=== PATIENT | female | born 1990 | race Caucasian/White ===

== ENCOUNTER 2018-10-16 05:23 | Inpatient (IN) ==
--- NOTE | 2018-10-11 10:31 | Anesthesiology Consultation ---
Date of Service October 11, 2018 Assessment & Plan (1) Encounter for pre-operative examination: Chart Review Chart Review: Acceptable Risk for Surgery and Patient seen in Pre Admission Testing Teaching & Discussion Instructed NPO after midnight before surgery, except medications with 15 cc of water. Medication instructions provided according to the PAT guidelines. History Surgery Operation Date: 10/16/18 07:30 Proposed Procedures p Section - Tatum Rendon DO Height/Weight Height: 5 ft 4.5 in Weight: 79.832 kg Allergies Allergy/AdvReac Type Severity Reaction Status Date / Time amoxicillin Allergy Unknown HIVES - Verified 10/09/18 15:57 A CHILD Medications Home Medications Medication Instructions Recorded Confirmed Last Taken + DHA PO BID 10/11/18 Unknown Past Medical History Medical History No known health problems Exercise / Class Metabolic Activity II 4-5 Yardwork/Stairs/Walk up hill Past Surgical History Surgical History History of section Done for failure to progress Past Anesthesia History Had epidural in place for labor, dosed for C/S. [facility]. No issues per patient. History of PONV No Hx of PONV and Hx of Motion Sickness Social History Smoking Status: Never smoker Do You Dip or Chew Tobacco: No Hx Alcohol Use: No Hx Substance Use: No Review of Systems Pt denies any recent chest pain, shortness of breath, palpitations, cough, fever or URI. Physical Exam Vital Signs BP: 99/60 P: 86bpm SPO2: 98% RA T: 98.3 F R: 16 ENMT Mouth: no dental restorations, no chipped teeth and no loose teeth Thyromental Distance: > or= 3.5 Finger Breadths (3.5) Mallampati Class: I Neck normal visual inspection; neck extension not limited Respiratory normal respiratory effort Auscultation: lungs clear to auscultation bilaterally Cardiovascular Rate/Rhythm: regular rate and regular rhythm Heart Sounds: no murmur
--- NOTE | 2018-10-11 15:16 | History & Physical Report ---
Date of Service October 11, 2018 Assessment & Plan (1) 40 weeks gestation of : Plan for repeat section. Reviewed RBA, questions answered. Informed consent obtained in the office. History of Present Illness Chief Complaint: Repeat CS Primary Care Provider: JT PCP 28yo with EDC 10/12/18 is scheduled for repeat section. complicated by h/o in prior due to failure to dilate. Feeling well. Allergies Allergy/AdvReac Type Severity Reaction Status Date / Time amoxicillin Allergy Unknown HIVES - Verified 10/09/18 15:57 A CHILD Home Medications Home Medications Medication Instructions Recorded Confirmed Type + DHA PO BID 10/11/18 History Patient History Medical History No known health problems Surgical History History of section Done for failure to progress Social History Preferred Language: Indian Communication Ability: Effective Penciller Required: No Beliefs That Will Affect Care: None Current Living Situation: Spouse and Family Other Information That Helps Us Care for You: No Feels Safe at Home: Yes Safety Concerns: Feels Safe At This Time Smoking Status: Never smoker Do You Dip or Chew Tobacco: No Second Hand Exposure: No Hx Alcohol Use: No Hx Substance Use: No Review of Systems All systems reviewed & are unremarkable except as noted in HPI & below Physical Exam Constitutional: WD/WN, vitals as above well developed and well nourished; no acute distress Respiratory: normal respiratory effort, lungs clear to auscultation Cardiovascular: RRR, no murmur, no edema Gastrointestinal (Abdomen): Inspection/Auscultation: abdomen normal to inspection Percussion/Palpation: abdomen soft; abdomen nontender Gravid Skin: no rashes, warm and dry Psychiatric: A+Ox3, euthymic affect Lymphatic: no lymphedema
[2018-10-16] MEDS ORDERED: LACTATED RINGER'S 1,000 ML IV SCH ×3 (05:30→11:00)
[2018-10-16 05:57] LABS: Basophils # (auto) 0.01 K/uL (0-0.2); Basophils % (auto) 0.2 %; Eosinophils # (auto) 0.04 K/uL (0-0.5); Eosinophils % (auto) 0.7 %; Hematocrit (blood only) 32.7 % (37-47); Hemoglobin 11.3 g/dL (12.0-16.0); Immature Granulocytes # (auto) 0.02 K/uL (0.00-0.02); Immature Granulocytes % (auto) 0.3 %; Lymphocytes % (auto) 22.5 %; Mean Corpuscular Volume 96.5 fL (80-100); Mean Platelet Volume 9.6 fL (7.4-10.4); Monocytes # (auto) 0.47 K/uL (0.11-0.59); Monocytes % (auto) 8.1 %; Neutrophils # (auto) 3.94 K/uL (1.4-6.5); Neutrophils % (auto) 68.2 %; Platelet Count 174 K/uL (130-400); RDW Coefficient of Variation 12.8 % (11.5-14.5); RDW Standard Deviation 44.5 fL (36.4-46.3); Red Blood Count 3.39 M/uL (4.2-5.4); White Blood Count 5.78 K/uL (4.8-10.8)
[2018-10-16] MEDS ORDERED: LR 15ML/HR IV SCH (06:00)
[2018-10-16] MEDS ORDERED: CEFAZOLIN 2000MG 2,000 MG/15 ML SYR IV SCH (06:00)
[2018-10-16] MEDS ORDERED: CITRIC ACID/SODIUM CITRATE 15 ML UDC PO SCH (06:00)
[2018-10-16 06:12] LABS: Mean Corpuscular Hgb Conc 34.6 g/dL (32-36)
--- NOTE | 2018-10-16 07:01 | History & Physical Bridge Note ---
Date of Service October 16, 2018 History & Physical Bridge Note I have examined the patient, reviewed the History & Physical and in the interval since the performance of the History & Physical I have noted the following changes of clinical significance: no changes noted
[2018-10-16] MEDS ORDERED: LACTATED RINGER'S 500 ML IV PRN (07:11)
[2018-10-16] MEDS ORDERED: ONDANSETRON INJ 2 MG/ML 2 ML VIAL IV PRN (07:11)
[2018-10-16] MEDS ORDERED: NALOXONE HCL 0.4 MG/1 ML VIAL/CARP IV PRN (07:11)
[2018-10-16] MEDS ORDERED: MoRPHine SULFATE PF 1 MG/ML 10 ML AMP/VIAL INT SPINAL ONE (07:11)
[2018-10-16] MEDS ORDERED: KETOROLAC 30 MG/ML VIAL IV PRN (07:11)
[2018-10-16] MEDS ORDERED: DiphenhydrAMINE HCL 50 MG/ML VIAL IV PRN (07:11)
[2018-10-16] MEDS ORDERED: NALBUPHINE HCL INJ 10 MG/ML AMP IV PRN (07:11)
[2018-10-16] MEDS ORDERED: HYDROmorphone INJ 0.5 MG/0.5 ML SYR IV PRN (07:11)
[2018-10-16] MEDS ORDERED: ePHEDrine sulfate 50 MG/ML AMP IV PRN (07:11)
[2018-10-16] MEDS ORDERED: NALOXONE HCL 1 MG in SODIUM CHLORIDE 0.9% 1000ML 1,000 ML IV PRN (07:11)
[2018-10-16] MEDS ORDERED: NALOXONE HCL 0.08 MG in SYRINGE 1.8 ML IV PRN (07:11)
[2018-10-16] MEDS ORDERED: SODIUM CHLORIDE 0.9% 1000ML 1,000 ML IV SCH (07:15)
[2018-10-16] MEDS ORDERED: NO NARCOTICS OR SEDATIVES SCH (07:15)
[2018-10-16] MEDS ORDERED: DC INTRASPINAL MORPHINE SCH (07:15)
[2018-10-16] MEDS ORDERED: MoRPHine SULFATE PF 1 MG/ML 10 ML AMP/VIAL ONE (07:23)
[2018-10-16] MEDS ORDERED: OXYTOCIN 10 UNITS/ML VIAL ONE (08:29)
[2018-10-16] MEDS ORDERED: KETOROLAC 30 MG/ML VIAL ONE (08:29)
--- NOTE | 2018-10-16 09:06 | Operative Report ---
Post Operative Report Pre & Post Diagnosis Operation Date: 10/16/18 07:30 Pre-Op Diagnosis: History of Section Post-Op Diagnosis: History of Section Procedure Operation Date: 10/16/18 07:30 Actual Procedures Repeat low transverse Section in LD - Tatum Rendon DO Surgeon Tatum Rendon DO Water Manager David Stevenson DO PGY 1 Estimated Blood Loss 600 Findings Consistent with Post-Op Diagnosis Viable female , Apgars 8/10. Weight 8#8.4. Normal appearing uterus, tubes, ovaries. Specimens Placenta, cord blood, cord gas. Drains morales, clear yellow Anesthesia Type Spinal Complications none Disposition Accompanied Patient To Recovery: Yes Disposition: L&D Indications 28yo @ 40 4/7 with h/o section. Recommended repeat due to no labor. Description of Procedure Patient was seen in the preoperative holding area, where risks benefits and alternatives to surgery were reviewed. She elected to proceed with the case. Questions were answered. She had previously signed informed consent under no duress in the office. She was taken to the operating room, spinal anesthesia, 2g ancef was infused. Prepped and draped in usual sterile fashion in supine position with leftward tilt. Pfannensteil skin incision was made with scalpel and carried through to the underlying layer of the fasica. The fascia was nicked at midline, and extended bilaterally. The peritoneum was entered sharply and bluntly extended. The bladder blade was placed and bladder flap was made with Metzenbaum scissors. The bladder blade was replaced. The low transverse uterine incision was made with a new scalpel and extended bilaterally. The infant was delivered from a c ephalic presentation, the head delivered, nuchal cord x 1 was easily reduced. The anterior, posterior shoulders were delivered, followed by the body. The mouth/nose were suctioned and a spontaneous cry was heard. The cord was doubly clamped and cut and the baby was handed off to the waiting rag production worker. The placenta was delivered spontaneously intact with a 3 vessel cord. Cord blood and segment were obtained. The uterus was exteriorized, and the uterus was cleared of clots/debris. The hysterotomy was reapproximated with 0-vicryl in a running locked stitch. A second layer of the same suture was used to imbricate. Figure of 8 stitches were used at the hysterotomy to obtain hemostasis. The posterior uterus was normal. The uterus was returned to the abdomen and excellent hemostasis was observed. The gutters were cleared of clots/debris. The fascia was reapproximated with a running stitch of 0-vicryl. The subcutaneous tissue was irrigated and reapproximated with a running stitch of 2-0 plain gut suture. The skin was reapproximated with 4-0 vicryl in a running locked stitch. Dressing was applied and patient was taken to recovery in stable and good condition. Sponge/instru ment/needle counts were correct x 2. I attest to the content of the Intraoperative Record and any orders documented therein. Any exceptions are noted below.
--- NOTE | 2018-10-16 09:11 | Anesthesiology Progress Note ---
Date of Service October 16, 2018 Anesthesia Post Procedure Vital Signs Vital Signs: Temp Pulse Resp BP Pulse Ox 10/16/18 09:09 74 100 10/16/18 09:04 76 102/55 L 100 10/16/18 05:57 36.7 C 97 H 20 118/63 10/16/18 05:35 97 H 118/63 10/16/18 05:34 36.7 C 20 Transfer of Care Handoff Completed per policy Notes Mental Status: alert / awake / arousable Patient Amnestic to Procedure: Yes Nausea / Vomiting: adequately controlled Pain: adequately controlled Airway Patency, RR, SpO2: stable & adequate BP & HR: stable & adequate Hydration State: stable & adequate Neuraxial Anesthesia: was administered and sensory block is resolving Anesthetic Complications: no major complications apparent and Pt Satisfied with anesthetic care
[2018-10-16 10:09] LABS: Base Excess Cord Venous Blood -2.5 mEq/L (-7.7-1.9); Cord Venous Blood HCO3 23 mmol/L (18.4-26.8); Cord Venous Blood PCO2 40 mmHg (30.4-57.2); Cord Venous Blood PO2 38 mmHg (14.1-43.3); Cord Venous Blood pH 7.37 (7.20-7.44)
[2018-10-16 10:10] LABS: Base Excess Cord Arterial Bld -3.3 mEq/L (-9-1.8); CO2 Cord Arterial Blood 55 mmHg (39.1-73.5); HCO3 Cord Arterial Blood 25 mmol/L (19.7-28.5); pH Cord Arterial Blood 7.26 (7.1-7.38)
[2018-10-16] MEDS ORDERED: HYDROCORTISONE ACETATE 25 MG SUPP PR PRN (10:44)
[2018-10-16] MEDS ORDERED: SENNA 8.6 MG TAB PO PRN (10:44)
[2018-10-16] MEDS ORDERED: BENZOCAINE 20% AER SPR 82.5 GM CAN EXT PRN (10:44)
[2018-10-16] MEDS ORDERED: DIPHTHERIA/TETANUS/PERTUSSIS 0.5 ML SYR/VIAL IM ONE (10:44)
[2018-10-16] MEDS ORDERED: MAGNESIUM HYDROXIDE SUSP 30 ML UDC PO PRN (10:44)
[2018-10-16] MEDS ORDERED: SUPERCREAM 0.870% 15 GM JAR EXT PRN (10:44)
[2018-10-16] MEDS ORDERED: OXYTOCIN 30 UNITS in LACTATED RINGER'S 1,000 ML IV SCH (11:00)
[2018-10-16] MEDS: FERROUS SULFATE 325 MG TAB PO SCH (14:35)
[2018-10-16] MEDS: SIMETHICONE 80 MG CHEW PO SCH (14:35)
[2018-10-16] MEDS: PRENATAL VITAMIN 1 TAB PO SCH (14:36)
[2018-10-16] MEDS: DOCUSATE SODIUM 100 MG CAP PO SCH ×2 (14:36→19:46)
[2018-10-17] MEDS ORDERED: KETOROLAC 30 MG/ML VIAL IV PRN (01:11)
[2018-10-17] MEDS ORDERED: ONDANSETRON INJ 2 MG/ML 2 ML VIAL IV PRN (01:11)
[2018-10-17] MEDS ORDERED: PROMETHAZINE HCL 25 MG in SODIUM CHLORIDE 0.9% 50 ML IV PRN (01:11)
[2018-10-17] MEDS ORDERED: OXYCODONE/ACETAMINOPHEN 5mg/325mg TAB PO PRN (01:11)
[2018-10-17] MEDS ORDERED: DiphenhydrAMINE HCL 50 MG/ML VIAL IV PRN (01:11)
[2018-10-17] MEDS: IBUPROFEN 600 MG TAB PO PRN ×4 (01:44→21:28)
[2018-10-17 06:19] LABS: Basophils # (auto) 0.01 K/uL (0-0.2); Basophils % (auto) 0.1 %; Eosinophils # (auto) 0.04 K/uL (0-0.5); Eosinophils % (auto) 0.4 %; Hematocrit (blood only) 29.7 % (37-47); Hemoglobin 10.2 g/dL (12.0-16.0); Immature Granulocytes # (auto) 0.02 K/uL (0.00-0.02); Immature Granulocytes % (auto) 0.2 %; Lymphocytes # (auto) 1.16 K/uL (1.2-3.4); Lymphocytes % (auto) 12.9 %; Mean Corpuscular Hgb Conc 34.3 g/dL (32-36); Mean Corpuscular Volume 96.4 fL (80-100); Mean Platelet Volume 9.6 fL (7.4-10.4); Monocytes # (auto) 0.52 K/uL (0.11-0.59); Monocytes % (auto) 5.8 %; Neutrophils # (auto) 7.23 K/uL (1.4-6.5); Neutrophils % (auto) 80.6 %; Platelet Count 165 K/uL (130-400); RDW Standard Deviation 45.1 fL (36.4-46.3); Red Blood Count 3.08 M/uL (4.2-5.4); White Blood Count 8.98 K/uL (4.8-10.8)
--- NOTE | 2018-10-17 06:52 | Obstetrical Progress Note ---
Date of Service <Jarvis Stevenson, DO - Last Filed: 10/17/18 06:52> October 17, 2018 Assessment & Plan <Jarvis Stevenson DO - Last Filed: 10/17/18 06:52> (1) Status post section routine follow-up: -vital signs reviewed and WNL -last Hgb 11.3 -Blood type: A+, GBS-, Rubella Immune -pt doing well clinically -encourage ambulation, monitor and control pain with motrin tylenol, cont regular diet, monitor lochia -remove morales today -cont encourage breast feeding Subjective <Jarvis DestiniLiban Stevenson DO - Last Filed: 10/17/18 06:52> 28 y/o POD1 found in bed this morning in NAD. Reports no acute overnight events. Pt states that she has no pain other than appropriate soreness. Tolerating PO intake without N/V. Able to ambulate without issue. She is breast feeding without issue. No issues with voiding, no BM yet but passing gas. No other acute concerns or complaints. Review of Systems All systems reviewed & are unremarkable except as noted in HPI & below Physical Exam <Jarvis Stevenson, DO - Last Filed: 10/17/18 06:52> Constitutional WD/WN, vitals as above Respiratory normal respiratory effort, lungs clear to auscultation Cardiovascular RRR, no murmur, no edema Gastrointestinal (Abdomen) mild abd tenderness Bandage C/D/I. Incision not visualized Fundus one below U, please correlate with attending findings Skin no rashes, warm and dry Psychiatric A+Ox3, euthymic affect Lymphatic no LE swelling, no calf tenderness Results & Data <Jarvis Stevenson, DO - Last Filed: 10/17/18 06:52> Vital Signs (Past 12 Hours) Vital Signs Temp Pulse Resp BP Pulse Ox 10/17/18 03:45 36.8 C 80 16 97/60 L 95 10/17/18 01:25 16 95 10/17/18 00:00 37 C 84 16 103/65 94 10/16/18 22:00 20 99 10/16/18 21:00 18 98 10/16/18 20:00 37.2 C 76 20 104/67 97 10/16/18 19:00 18 99 Laboratory Results Laboratory Results - last 24 hr 10/16/18 10/16/18 10/16/18 05:48 08:20 08:20 WBC RBC Hgb Hct MCV MCH MCHC RDW Std Deviation RDW Coeff of Lyudmila Plt Count MPV Immature Gran % (Auto) Neut % (Auto) Lymph % (Auto) [place] % (Auto) Eos % (Auto) Baso % (Auto) Immature Gran # (Auto) Neut # (Auto) Lymph # (Auto) [place] # (Auto) Eos # (Auto) Baso # (Auto) Cord ABG pH 7.26 Cord ABG pCO2 55 Cord ABG pO2 23.0 Cord ABG HCO3 25 Cord ABG Base Excess -3.3 Cord ABG O2 Sat < 60.0 Cord VBG pH 7.37 Cord VBG pCO2 40 Cord VBG pO2 38 Cord VBG HCO3 23 Cord VBG Base Excess -2.5 Cord VBG O2 Sat 77.0 H Barometric Pressure 730.4 730.4 Blood Gas Comments INFANT A INFANT A Blood Type A Positive Antibody Screen NEGATIVE 10/17/18 05:48 WBC 8.98 RBC 3.08 L Hgb 10.2 L Hct 29.7 L MCV 96.4 MCH 33.1 MCHC 34.3 RDW Std Deviation 45.1 RDW Coeff of Lyudmila 13.0 Plt Count 165 MPV 9.6 Immature Gran % (Auto) 0.2 Neut % (Auto) 80.6 Lymph % (Auto) 12.9 [place] % (Auto) 5.8 Eos % (Auto) 0.4 Baso % (Auto) 0.1 Immature Gran # (Auto) 0.02 Neut # (Auto) 7.23 H Lymph # (Auto) 1.16 L [place] # (Auto) 0.52 Eos # (Auto) 0.04 Baso # (Auto) 0.01 Cord ABG pH Cord ABG pCO2 Cord ABG pO2 Cord ABG HCO3 Cord ABG Base Excess Cord ABG O2 Sat Cord VBG pH Cord VBG pCO2 Cord VBG pO2 Cord VBG HCO3 Cord VBG Base Excess Cord VBG O2 Sat Barometric Pressure Blood Gas Comments Blood Type Antibody Screen Medications Administered Current Inpatient Medications Benzocaine (Dermoplast Pain Relieving [place]) 1 appln EXT UD PRN PRN Reason: use on skin as needed Stop: 11/15/18 10:43 Bisacodyl (Dulcolax) 5 mg PO 2000 [facility] Stop: 10/17/18 20:01 Bisacodyl (Dulcolax) 10 mg [place] PRN PRN PRN Reason: Constipation Stop: 11/17/18 09:00 Cocaine HCl (Supercream 0.870%) 1 gm EXT UD PRN PRN Reason: hemmorrhoidal inflammation Stop: 10/30/18 10:43 Diphenhydramine HCl (Benadryl) 25 mg IV QID PRN PRN Reason: Itching Stop: 11/16/18 01:10 Diphenhydramine HCl (Benadryl Capsule) 25 mg PO QID PRN PRN Reason: Itching Stop: 11/16/18 01:10 Docusate Sodium (Colace) 100 mg PO BID [facility] Stop: 11/15/18 10:59 Last Admin: 10/16/18 19:46 Dose: 100 mg Documented by: Ferrous Sulfate (Feosol) 325 mg PO QAM [facility] Stop: 11/15/18 10:43 Last Admin: 10/16/18 14:35 Dose: Not Given Documented by: Hydrocortisone (Anusol Hc) 25 mg [place] BID PRN PRN Reason: Hemorrhoids Stop: 11/15/18 10:43 Lactated Ringer's (Lr) 1,000 mls @ 125 mls/hr IV .Q8H [facility] Stop: 11/15/18 10:59 Last Infusion: 10/17/18 01:30 Dose: 0 mls/hr Documented by: Promethazine HCl 25 mg/ Sodium (Chloride) 51 mls @ 204 mls/hr IV Q4H PRN PRN Reason: Nausea And Vomiting Stop: 11/16/18 01:10 Oxytocin 30 units/ Lactated (Ringer's) 1,003 mls @ 125 mls/hr IV .Q8H2M [facility] Stop: 11/15/18 10:59 Last Infusion: 10/16/18 19:47 Dose: Infused Documented by: Ibuprofen (Motrin) 600 mg PO Q4H PRN PRN Reason: Pain Stop: 11/15/18 10:43 Last Admin: 10/17/18 01:44 Dose: 600 mg Documented by: Ketorolac Tromethamine (Toradol) 30 mg IV Q6H PRN PRN Reason: Pain Stop: 10/22/18 01:10 Magnesium Hydroxide (Milk Of Magnesia) 30 ml PO HS PRN PRN Reason: Constipation Stop: 11/15/18 10:43 Ondansetron HCl (Zofran) 4 mg IV Q4H PRN PRN Reason: Nausea And Vomiting Stop: 11/16/18 01:10 Oxycodone/Acetaminophen (Percocet 5mg/325mg) 1 - 2 tab PO Q4H PRN PRN Reason: Pain Stop: 10/31/18 01:10 Prenat Multivit/[place]/Iron/Folic Ac ( Vitamin) 1 tab PO QAM [facility] Stop: 11/15/18 10:43 Last Admin: 10/16/18 14:36 Dose: Not Given Documented by: Sennosides (Senokot) 17.2 mg PO HS PRN PRN Reason: Constipation Stop: 11/15/18 10:43 Simethicone (Mylicon) 80 mg PO QID [facility] Stop: 11/15/18 10:43 Last Admin: 10/16/18 14:35 Dose: Not Given Documented by: <Geetha Rios MD, FACOG - Last Filed: 10/17/18 07:43> Co-Signing Physician Notes Resident Physician Supervision Note: I interviewed and examined the patient. Discussed with Dr. Stevenson and agree with findings and plan as documented in the note. Any exceptions or clarifications are listed here: Fundus 2 below u, appropriately tender. Morales is out and she has voided. Incision c/d/i. Routine pp care. Documented By: Geetha Rios MD, FACOG Resident Activity Tracking <Jarvis Stevenson DO - Last Filed: 10/17/18 06:52> Resident Involvement: Resident Care Provided Care Provided: OB Delivery
[2018-10-17] MEDS: PRENATAL VITAMIN 1 TAB PO SCH (08:04)
[2018-10-17] MEDS: DOCUSATE SODIUM 100 MG CAP PO SCH ×2 (08:04→21:27)
[2018-10-17] MEDS: FERROUS SULFATE 325 MG TAB PO SCH (08:04)
[2018-10-17] MEDS: SIMETHICONE 80 MG CHEW PO SCH ×5 (13:43→21:27)
[2018-10-17] MEDS ORDERED: BISACODYL 5 MG TABEC PO SCH (20:00)
[2018-10-18] MEDS: IBUPROFEN 600 MG TAB PO PRN ×3 (00:59→12:34)
[2018-10-18 06:10] LABS: Hematocrit (blood only) 30.8 % (37-47); Hemoglobin 10.5 g/dL (12.0-16.0)
--- NOTE | 2018-10-18 06:26 | Obstetrical Progress Note ---
Date of Service <Jarvis Delroy Stevenson DO - Last Filed: 10/18/18 06:26> October 18, 2018 Assessment & Plan <Jarvismaximus WeldonelDO - Last Filed: 10/18/18 06:26> (1) Status post section routine follow-up: -vital signs reviewed and WNL -last Hgb 10.2 -Blood type: A+, GBS-, Rubella Immune -pt doing well clinically -encourage ambulation, monitor and control pain with motrin tylenol, cont regular diet, monitor lochia -cont encourage breast feeding -plan for d/c today Subjective <Jarvis CLiban DO [place] - Last Filed: 10/18/18 06:26> 28 y/o POD2 found in bed this morning in NAD. Reports no acute overnight events. Pt states that she has no pain other than appropriate soreness. Tolerating PO intake without N/V. Able to ambulate without issue. She is breast feeding without issue. No issues with voiding, no BM yet but passing gas. No other acute concerns or complaints. Pt requesting to be d/c today. Review of Systems All systems reviewed & are unremarkable except as noted in HPI & below Physical Exam <Jarviszeferino Stevenson DO - Last Filed: 10/18/18 06:26> Constitutional WD/WN, vitals as above Respiratory normal respiratory effort, lungs clear to auscultation Cardiovascular RRR, no murmur, no edema Gastrointestinal (Abdomen) mild abd tenderness Incision C/D/I, steri strips in place Fundus two below U, please correlate with attending findings Skin no rashes, warm and dry Psychiatric A+Ox3, euthymic affect Lymphatic no LE swelling, no calf tenderness Results & Data <Jarvismaximus Stevenson DO - Last Filed: 10/18/18 06:26> Vital Signs (Past 12 Hours) Vital Signs Temp Pulse Resp BP Pulse Ox 10/17/18 23:50 36.7 C 71 18 115/77 96 10/17/18 21:25 36.7 C 80 18 111/70 97 Laboratory Results Laboratory Results - last 24 hr 10/18/18 05:58 Hgb 10.5 L Hct 30.8 L Medications Administered Current Inpatient Medications Benzocaine (Dermoplast Pain Relieving [place]) 1 appln EXT UD PRN PRN Reason: use on skin as needed Stop: 11/15/18 10:43 Bisacodyl (Dulcolax) 10 mg [place] PRN PRN PRN Reason: Constipation Stop: 11/17/18 09:00 Cocaine HCl (Supercream 0.870%) 1 gm EXT UD PRN PRN Reason: hemmorrhoidal inflammation Stop: 10/30/18 10:43 Diphenhydramine HCl (Benadryl) 25 mg IV QID PRN PRN Reason: Itching Stop: 11/16/18 01:10 Diphenhydramine HCl (Benadryl Capsule) 25 mg PO QID PRN PRN Reason: Itching Stop: 11/16/18 01:10 Docusate Sodium (Colace) 100 mg PO BID [facility] Stop: 11/15/18 10:59 Last Admin: 10/17/18 21:27 Dose: 100 mg Documented by: Ferrous Sulfate (Feosol) 325 mg PO QAM [facility] Stop: 11/15/18 10:43 Last Admin: 10/17/18 08:04 Dose: 325 mg Documented by: Hydrocortisone (Anusol Hc) 25 mg [place] BID PRN PRN Reason: Hemorrhoids Stop: 11/15/18 10:43 Lactated Ringer's (Lr) 1,000 mls @ 125 mls/hr IV .Q8H [facility] Stop: 11/15/18 10:59 Last Infusion: 10/17/18 01:30 Dose: 0 mls/hr Documented by: Promethazine HCl 25 mg/ Sodium (Chloride) 51 mls @ 204 mls/hr IV Q4H PRN PRN Reason: Nausea And Vomiting Stop: 11/16/18 01:10 Oxytocin 30 units/ Lactated (Ringer's) 1,003 mls @ 125 mls/hr IV .Q8H2M [facility] Stop: 11/15/18 10:59 Last Infusion: 10/16/18 19:47 Dose: Infused Documented by: Ibuprofen (Motrin) 600 mg PO Q4H PRN PRN Reason: Pain Stop: 11/15/18 10:43 Last Admin: 10/18/18 00:59 Dose: 600 mg Documented by: Ketorolac Tromethamine (Toradol) 30 mg IV Q6H PRN PRN Reason: Pain Stop: 10/22/18 01:10 Magnesium Hydroxide (Milk Of Magnesia) 30 ml PO HS PRN PRN Reason: Constipation Stop: 11/15/18 10:43 Ondansetron HCl (Zofran) 4 mg IV Q4H PRN PRN Reason: Nausea And Vomiting Stop: 11/16/18 01:10 Oxycodone/Acetaminophen (Percocet 5mg/325mg) 1 - 2 tab PO Q4H PRN PRN Reason: Pain Stop: 10/31/18 01:10 Prenat Multivit/Dance Master/Iron/Folic Ac ( Vitamin) 1 tab PO QAM [facility] Stop: 11/15/18 10:43 Last Admin: 10/17/18 08:04 Dose: 1 tab Documented by: Sennosides (Senokot) 17.2 mg PO HS PRN PRN Reason: Constipation Stop: 11/15/18 10:43 Simethicone (Mylicon) 80 mg PO QID [facility] Stop: 11/15/18 10:43 Last Admin: 10/17/18 21:27 Dose: 80 mg Documented by: <Pallavi Calvert MD - Last Filed: 10/18/18 07:45> Co-Signing Physician Notes I have reviewed the resident's note and examined the patient myself, and agree with the note above. Resident Activity Tracking <Jarvis Stevenson DO - Last Filed: 10/18/18 06:26> Resident Involvement: Resident Care Provided Care Provided: OB Delivery
[2018-10-18] MEDS: SIMETHICONE 80 MG CHEW PO SCH ×2 (08:29→12:34)
[2018-10-18] MEDS: PRENATAL VITAMIN 1 TAB PO SCH (08:29)
[2018-10-18] MEDS: FERROUS SULFATE 325 MG TAB PO SCH (08:29)
[2018-10-18] MEDS: DOCUSATE SODIUM 100 MG CAP PO SCH (08:29)
[2018-10-18] MEDS ORDERED: BISACODYL 10 MG SUPP PR PRN (09:01)
--- NOTE | 2018-10-23 13:17 | Discharge Summary ---
Date of Service October 23, 2018 Admission HPI Per Admitting Provider 28yo with EDC 10/12/18 is scheduled for repeat section. complicated by h/o in prior due to failure to dilate. Feeling well. Discharge Data Procedures Performed Operation Date: 10/16/18 07:30 Actual Procedures Repeat low transverse Section in [facility] Tatum Rendon DO Hospital Course (1) Status post section routine follow-up: Admitted following scheduled repeat section. Routine postop care. Discharged home POD#2. Please see patient discharge info for details. Followup in office in 6w.
== END 2018-10-18 14:00 | disposition home or self-care (01) | DRG 788 ==
LOC: 4S1 05:23 → EDSTATUS 07:30 → 4S2 12:30
DX: O34.211 Maternal care for low transverse scar from previous cesarean delivery; Z37.0 Single live birth; Z3A.40 40 weeks gestation of pregnancy

== ENCOUNTER 2022-01-11 06:58 | Inpatient (IN) ==
--- NOTE | 2022-01-04 10:41 | Anesthesiology Consultation ---
Date of Service January 04, 2022 Assessment & Plan (1) Encounter for pre-operative examination: COVID screening: Per assessment on 01/01: No known COVID-19 positive contacts or current COVID-19 related symptoms. Travel screen negative. At surgeon discretion if preop Covid testing being done. Chart Review Chart Review: order entry initiated History Surgery Operation Date: 01/11/22 08:50 Proposed Procedures p Section (Delivery of Baby Through Abdominal Incision) - Boaz Alvarenga MD Height/Weight Height: 5 ft 4.5 in Weight: 80.739 kg Allergies Allergy/AdvReac Type Severity Reaction Status Date / Time amoxicillin Allergy Unknown HIVES - Verified 01/01/22 15:38 A CHILD Medications Home Medications Medication Instructions Recorded Confirmed Last Taken vit with calcium-iron 2 tab PO BID 01/01/22 01/01/22 Unknown fum-folic acid 60 mg-0.8 mg tablet Past Medical History Medical History Hemorrhoids History of meningitis Age 20 Past Family History Family History Mother Family history of fraternal twins Hypertension Premature labor Fibroids Sister Ovarian cyst Other Endometriosis Past Surgical History Surgical History H/O section X2 Social History Smoking Status: Never smoker Do You Dip or Chew Tobacco: No Hx Alcohol Use: No Hx Substance Use: No substance use type: does not use
[2022-01-11] MEDS ORDERED: LACTATED RINGER'S 1,000 ML IV SCH (07:45)
[2022-01-11] MEDS ORDERED: SODIUM CHLORIDE 0.9% 250 ML IV PRN (08:24)
[2022-01-11] MEDS ORDERED: ceFAZolin 2000MG 2,000 MG/15 ML SYR IV ONE (08:25)
[2022-01-11 09:19] LABS: Hematocrit (blood only) 30.8 % (34.1-44.9); Hemoglobin 10.7 g/dl (12.0-16.0); Mean Corpuscular Hemoglobin 33.1 pg (25.0-34.0); Mean Corpuscular Hgb Conc 34.7 g/dL (32.0-36.0); Mean Corpuscular Volume 95.4 fL (80.0-100.0); Mean Platelet Volume 10.2 fL (9.4-12.3); Platelet Count 197 K/uL (130-400); RDW Coefficient of Variation 12.4 % (11.5-14.5); RDW Standard Deviation 43.5 fL (36.4-46.3); Red Blood Count 3.23 M/uL (3.93-5.22)
[2022-01-11] MEDS ORDERED: fentaNYL citrate 100 MCG/2 ML VIAL ONE (09:29)
[2022-01-11] MEDS ORDERED: MoRPHine SULFATE PF 1 MG/ML 10 ML AMP/VIAL ONE (09:29)
[2022-01-11] MEDS ORDERED: CITRIC ACID/SODIUM CITRATE 15 ML UDC PO SCH ×2 (10:00)
--- NOTE | 2022-01-11 10:17 | History & Physical Report ---
Date of Service January 11, 2022 Assessment & Plan (1) Supervision of normal intrauterine in multigravida: (2) History of section: Plan 31 yo at 39w2d GA. Presents for repeat LTCS 1. Fetus: Reactive 2. Delivery: C-sections consents signed 3. Vitals normal. Admission and Anticipated Discharge Date Admission Date: January 11, 2022 History of Present Illness Primary Care Provider: JT PCP Елена is a 31-year-old currently at 39 weeks 2 days gestational age presents for scheduled repeat Caesarean section. Patient's care is otherwise uncomplicated. [facility] [address] [facility] - [place], [place] Obstetrics Visit Signed Patient:ЕЛЕНА KESSLER Service Date:01/08/22 MR#:[id number] Ref Phy:Boaz Carranza MD Acct ID:[id number] Lesli Phy:PCP,NO Date:1990 Location:[facility] cc: Boaz Carranza MD~ *NOTICE TO RECEIVING REPUBLICAN/AGENCY This information is strictly Confidential and protected under [place] law. [place] law prohibits you from making any further disclosure of this information unless further disclosure is expressly permitted by the written consent of the person to whom it pertains or is authorized by law. A general authorization for the release of medical or other information is not sufficient for this purpose. Physician Practice accepts no responsibility if the information is made available to any other person, INCLUDING THE PATIENT. Medical Eyeglass Frame Truer Eyeglass Frame Truer Determination Visit Includes a Sensitive Exam of the Pt/Pt Requested: No Visit CHANTELLE Calculator Estimated Delivery Date Method Current WG Current Estimate 01/16/22 Ultrasound #1 38w 6d : 7 Full term: 2 Premature: 0 Total Number of Induced Abortions: 0 Total Number of Spontaneous Abortions: 4 Ectopics: 0 Multiple births: 0 Number of Living Children: 2 and Delivery Plans Late care--first ob 18 weeks Previous Section affecting x 2 C/S SCHEDULED FOR 01/11/[address] CARRANZA AND DR. LACKEY ASSIST NEEDS COVID TEST ON 01/07/2022-ORDERED OB Visit Log Initial Weight:174 lb Date EGA Weight FH Pres FHR FM CX BP Alb Glu Edema NOV Prov Notes 08/05/21 16w 4d NOB nurse visit see comments, HK 08/20/21 18w 5d 174 lb(+0 oz) 18 140s Active 120/72 Neg Neg 0 [facility] NO labs complete,declined gtt, decined genetic testing/QUAD -SB 09/07/21 21w 2d 177 lb(+3 lb) 21 us Active 128/78 Neg Neg 0 4w AK AL 10/22/21 27w 5d 177 lb 6.4 oz(+3 lb 6.4 oz) 27 140 Active 120/78 0 2w KBB 28 wk labs NOV, UACS , declines TDaP, papers -OC 11/04/21 29w 4d 179 lb 9.6 oz(+5 lb 9.6 oz) 29 140s Active 128/82 0 2w MLN GTT/28wk labs today - AL 11/18/21 31w 4d 178 lb 3.2 oz(+4 lb 3.2 oz) 31 130s Active 100/68 Neg Neg 0 2w MLN OC 12/16/21 35w 4d 178 lb 6.4 oz(+4 lb 6.4 oz) 35 130s Active 104/76 Neg Neg 0 1w MLN MK 01/01/22 37w 6d 178 lb 6.4 oz(+4 lb 6.4 oz) term V 120s Active c /t/h 110/62 Neg Neg 0 1w KBB GBS today - AL 01/08/22 38w 6d 179 lb(+5 lb) Term 135 Active 116/78 Neg Neg 0 1w JDK preop c/s -SB Comments Visit Date: 01/08/22 Last Updated by: Boaz Carranza MD Doing well. consent signed. Visit Date: 01/01/22 Last Updated by: Tatum Rendon, DO GBS collected. Doing well. Rare ctx. Visit Date: 12/16/21 Last Updated by: ADELE Cuadra Patient states feeling well. Denies contractions, leaking of fluid, and states feeling movement. GBS next visit Visit Date: 11/18/21 Last Updated by: ADELE Cuadra Patient states feeling well. Denies contractions, leaking of fluid, and states feeling movement. 28wk labs reviewed. No complaints Visit Date: 11/04/21 Last Updated by: ADELE Cuadra Patient states feeling well. Denies contractions, leaking of fluid, and states feeing movement. 28wk labs/GTT today. Declines Tdap; education provided on recommendation. Csection date scheduled Visit Date: 10/22/21 Last Updated by: Tatum Rendon Unable to stay to do 1hr glucola today, discussed recommendation to do this at next visit - do not recommend waiting longer than 2w to do this, and could come to lab separately from visit if needed. Schedule CS today. Declines tubal. Belly band info given. Visit Date: 09/07/21 Last Updated by: Geetha Rios completed anatomy scan. EFW 23%. +pnv, kanika, omega 3. safe. Visit Date: 08/20/21 Last Updated by: Geetha Rios occasional cramping. no vb. no nausea now, resolved. +pnv, calcium, omega 3. safe. Declines genetics /cf/sma and gtt. Visit Date: 08/05/21 Last Updated by: Mamta Hogue Nurse visit via phone due to covid 19 pandemic. pt is late care d/t wasnt sure if it was a viable . viability done prior to nurse visit. IUP @ 16wks. spoke with Provider of day, ok to do NOB labs today. Pt declines gtt @ 16wks and will do the gtt at 28wks. Nursing Visit Reasons:PREOP TO C/S ON 01/11 Allergies amoxicillin Allergy (Unknown, Verified 01/08/22 08:53) HIVES - A CHILD Medications vit with calcium-iron fum-folic acid 60 mg-0.8 mg tablet 2 tab PO BID 01/01/22 [History Confirmed 01/08/22] Patient Confirmed : Yes General Travel Information Hx Out of Country or Outbreak Area Travel in Last 30 Days: No Exposure Risk Identification Exposure to Anyone Dx Infectious Disease: No Symptom Evaluation Are You having any Infectious Disease Symptoms: No Infectious Disease Testing Hx Infectious Disease Testing in Last 30 Days: No PFSH Medical History Hemorrhoids History of meningitis Age 20 Surgical History H/O section X2 Family History Mother Family history of fraternal twins Hypertension Premature labor FibroidsSister Ovarian cystOther Endometriosis Social History(Updated 08/05/21 @ 13:09 by Mamta Oglesby) Smoking Status: Never smoker Second Hand Exposure: No; Hx Alcohol Use: No Hx Substance Use: No Preferred Language: Portuguese Communication Ability: Effective Rn Hospital Required: No Beliefs That Will Affect Care: None marital status: marital status details: Neftali(30) Current Living Situation: Spouse and Family Current Living Situation Comment: DOG, AND OUTSIDE CATS current occupational status: unemployed current occupation: homemaker Feels Safe at Home: Yes Assistive Devices: None History : 7 Full term: 2 Premature: 0 Total Number of Induced Abortions: 0 Total Number of Spontaneous Abortions: 4 Ectopics: 0 Multiple births: 0 Number of Living Children: 2 Menstrual History Last menstrual period: Yes Menstrual reliability: approximate (month known) Flow: heavy Menstrual regularity: irregular Monthly: Yes Age at menarche: 13 On control pills at conception: No Date of positive home test: 05/22/21 Menstrual history comments: 32-35 day cycles Details: Last pap 12/19/18 with TENISHA Rendon Past Pregnancies Past Pregnancies Del. Date GA wks Lbr Lgth wt Sex Type del Anes Place Del Prov ? Comment Unknown Aborted-Spontaneous march 2016 Unknown Aborted-Spontaneous november 2015 Unknown Aborted-Spontaneous March 2021 04/25/14 7lb 15oz M Epidura l Other [place] No Failure to Progress 11/24/17 Aborted-Spontaneous 10/16/18 40 8lb 8oz F Spinal [facility] Dr. Rendon No Medical History Medical History: Diabetes: Neg, Hypertension: Neg, Heart Disease: Neg, Autoimmune Disease: Neg, Kidney Disease/UTI: Neg, Neurologic/Epilepsy: Pos (hx migraines does not follow anyone. ), Psychiatric: Neg, Depression/PPD: Neg, Hepatitis/Liver Disease: Neg, Varicosities/Phlebitis: Neg, Thyroid Dysfunction: Neg, Trauma/Violence: Neg, History of Blood Transfusion: Neg, Hematologic Disorders: Neg, GI Disorders: Neg, Dermatologic Disorders: Neg, D (Rh) Sensitized: Neg, Pulmonary(TB, Asthma): Neg, Seasonal Allergies: Neg, Drug/Latex Allergic Reactions: Pos (Amoxicillin- hives), Breast: Neg, [employer] Surgeries: Pos (C/S x 2), Operations/Hospitalizations(Year/reason): Neg, Anesthesia Complications: Neg, Hx of abnml PAP: Neg, Uterine Anomaly/OLIVER: Neg, Infertilitiy: Neg, ART treatment: Neg, Complications: Neg, Cancer: Neg, Relevant Family Hx: Pos (see pfsh) and Other: Pos (varicella vaccine) Tobacco: Denies use Alcohol: Denies use Illicit/Recreational Drugs: Denies use Symptoms since LMP Symptoms since LMP: +FM Infection History & Risk Profile Infection History: Hx Chlamydia: No, Hx Genital Herpes: No, Hx Gonorrhea: No, Hx Hepatitis: No, Hx HIV/AIDS: No, Hx Human Papilloma Virus (HPV): No, Hx Syphilis: No, Hx Tuberculosis: No, Rash or viral illness since LMP: No and Prior GBS infected child: No Genetic Screening & Leadership Coach Genetic Screening/Teratology Counseling - Includes patient, baby's father, or anyone in either family with: Genetic Screening and Leadership Coach: No 1. Patient's age 35 years or older as of estimated date of delivery, No 2. Thalassemia (Somali, Dutch, Mediterranean, or Background); MCV less than 80, No 3. Neural Tube Defect (Meningomyelocele, Spina Bifida, or Anencephaly), No 4. Hepatitis B,C, No 5. Down Syndrome, No 6. Kody-Sachs (Ashkenazi Religious, Cajun, Urdu [place]), No 7. Benito Disease (Ashkenazi Religious), No 8. Familial Dysautonomia (Ashkenazi Religious), No 9. Sickle Cell Disease or Trait (), No 10. Hemophilia or other blood disorders, No 11. Muscular Dystrophy, No 12. Cystic Fibrosis, No 13. Bartholomew's Chorea, No 14. Mental Retardation/Autism, No 15. Other inherited genetic or chromosomal disorder, No 16. Maternal Metabolic Disorder (EG,TYPE 1 Diabetes, PKU), No 17. Patient or baby's father had a child with defects not listed above, No 18. Recurrent loss or a stillbirth, No 19. Medications (including supplements, vitamins, herbs or otc drugs)/illicit/recreational drugs/alcohol since last menstrual period and No 20. Any other Comments/Counseling: FOB: healthy, FMHX: unremarkable. Initial Phyiscal Exam Initial Physical Examination Date: 08/20/21 Initial Physical Exam: 4. Thyroid: normal, 5. Breasts: normal, 6. Lungs: normal, 7. Heart: normal, 9. Extremities: normal, 10. Skin: normal, 12. Vulva: normal, 13. Vagina: normal, 14. Cervix: normal and 15. Adnexa: normal 17. Uterus Size (weeks): c/w dates Exam By:: gerda Source: [employer] Ed First Trimester Education Checklist Plans/Education - by Trimester First Trimester Education: HIV and other routine tests: discussed, Influenza vaccine: discussed (did not do flu or covid vaccine.), Nutrition and weight gain counseling: special diet: discussed, Sexual activity: discussed, Exercise: discussed, Alcohol: discussed, Use of any medications (including supplements, vitamins, herbs, or OTC drugs): discussed, Domestic violence: discussed, Travel: discussed ([place] early summer), Seatbelt use: discussed, Toxoplasmosis precautions (cats/raw meat): discussed, Childbirth classes/Hospital facilities: discussed, Anticipated course of care: discussed and Indications for ultrasound: discussed Second Trimester Education Checklist Second Trimester Education: Donating or Banking Stem Cells: discussed (info given) Labs Lab Results OB Labs: Blood Type A Positive 08/05/21 Antibody Screen NEGATIVE 08/05/21 Hemoglobin 11.7 g/dl (12.0-16.0) L 11/04/21 Hematocrit 33.9 % (34.1-44.9) L 11/04/21 Mean Corpuscular Volume 93.5 fL (80-100) 08/05/21 Platelet Count 211 K/uL (130-400) 08/05/21 Rubella IgG Antibody Immune (Immune) 08/05/21 Rapid Plasma Reagin Nonreactive (Nonreactive) 08/05/21 Hepatitis B Surface Antigen. NON-REACTIVE (NON-REACTIVE) 08/05/21 Hepatitis C Antibody (EIA) NON-REACTIVE (NON-REACTIVE) 08/05/21 HIV (1&2) Ag and Ab Confirmation NON-REACTIVE (NON-REACTIVE) 08/05/21 Glucose 1 Hour 50 gm Load 96 mg/dl (70-130) 11/04/21 OB Optional Labs: Chlamydia trachomatis RNA NOT DETECTED (NOT DETECTED) 08/20/21 Neisseria gonorrhoeae RNA NOT DETECTED (NOT DETECTED) 08/20/21 Labs Reviewed: declines genetics, cf/sma--akh declines 16 week gtt--[facility] Allergies Allergy/AdvReac Type Severity Reaction Status Date / Time amoxicillin Allergy Unknown HIVES - Verified 01/11/22 07:24 A CHILD Home Medications Medication Instructions Recorded Confirmed Type vit with calcium-iron 2 tab PO BID 01/01/22 01/11/22 History fum-folic acid 60 mg-0.8 mg tablet Patient History Medical History Hemorrhoids History of meningitis Age 20 Surgical History H/O section X2 Family History Mother Family history of fraternal twins Hypertension Premature labor Fibroids Sister Ovarian cyst Other Endometriosis Social History (Updated 08/05/21 @ 13:09 by Mamta Oglesby) Smoking Status: Never smoker Second Hand Exposure: No; Do You Dip or Chew Tobacco: No; Hx Alcohol Use: No Hx Substance Use: No Preferred Language: Portuguese Communication Ability: Effective Rn Hospital Required: No Beliefs That Will Affect Care: None marital status: marital status details: Neftali(30) Current Living Situation: Spouse and Family Current Living Situation Comment: DOG, AND OUTSIDE CATS current occupational status: unemployed current occupation: homemaker Other Information That Helps Us Care for You: No Feels Safe at Home: Yes Safety Concerns: Feels Safe At This Time Assistive Devices: None Physical Exam Respiratory: normal respiratory effort; no respiratory distress, no labored breathing, no retractions and no cough Cardiovascular: Rate/Rhythm: regular rate and regular rhythm Gastrointestinal (Abdomen): Inspection/Auscultation: abdomen not distended Percussion/Palpation: abdomen soft; abdomen nontender, no guarding and abdomen not rigid Genitourinary: OB Exam Monitor Tracing: + external FHT monitor used, + external uterine monitor used, + category I and + normal FHT variability; no early decelerations present, no late decelerations present and no variable decel erations Results & Data ([facility]) Vital Signs (Past 12 Hours) Vital Signs Temp Pulse Resp BP 01/11/22 07:22 18 01/11/22 07:22 36.7 C 18 01/11/22 07:18 100 H 108/58 L Code Status & VTE Plan VTE Prophylaxis Plan VTE Prophylaxis will be ordered: Yes Coding Level of Care Code None Diagnoses Supervision of normal intrauterine in multigravida Z34.80 History of section Z98.891
[2022-01-11] MEDS ORDERED: OXYTOCIN 10 UNITS/ML VIAL ONE (11:55)
[2022-01-11] MEDS ORDERED: PHENYLEPHRINE 100MCG/ML 5ML SYR ONE (11:55)
[2022-01-11] MEDS ORDERED: ONDANSETRON INJ 2 MG/ML 2 ML VIAL ONE (11:55)
[2022-01-11] MEDS ORDERED: MoRPHine SULFATE PF 1 MG/ML 10 ML AMP/VIAL INT SPINAL ONE (12:08)
[2022-01-11] MEDS ORDERED: MoRPHine SULFATE 2 MG/ML CARP IV PRN (12:08)
[2022-01-11] MEDS ORDERED: NALBUPHINE HCL INJ 10 MG/ML AMP IV PRN (12:08)
[2022-01-11] MEDS ORDERED: NALOXONE HCL 1 MG in SODIUM CHLORIDE 0.9% 1000ML 1,000 ML IV PRN (12:08)
[2022-01-11] MEDS ORDERED: ONDANSETRON INJ 2 MG/ML 2 ML VIAL IV PRN (12:08)
[2022-01-11] MEDS ORDERED: PROMETHAZINE HCL 6.25 MG in SODIUM CHLORIDE 0.9% 50 ML IV PRN (12:08)
[2022-01-11] MEDS ORDERED: NALOXONE HCL 0.4 MG/1 ML VIAL/CARP IV PRN (12:08)
[2022-01-11] MEDS ORDERED: diphenhydrAMINE 50 MG/ML VIAL IV PRN ×2 (12:08→13:15)
[2022-01-11] MEDS ORDERED: LACTATED RINGER'S 500 ML IV PRN (12:08)
[2022-01-11] MEDS ORDERED: ePHEDrine sulfate 50 MG/ML AMP IV PRN (12:08)
[2022-01-11] MEDS ORDERED: NALOXONE HCL 0.08 MG in SYRINGE 1.8 ML IV PRN (12:08)
[2022-01-11] MEDS ORDERED: NO NARCOTICS OR SEDATIVES SCH (12:15)
[2022-01-11] MEDS ORDERED: DC INTRASPINAL MORPHINE SCH (12:15)
[2022-01-11] MEDS ORDERED: SODIUM CHLORIDE 0.9% 1000ML 1,000 ML IV SCH (12:15)
[2022-01-11] MEDS ORDERED: DIPHTHERIA/TETANUS/PERTUSSIS 0.5 ML SYR/VIAL IM ONE (13:15)
[2022-01-11] MEDS ORDERED: BENZOCAINE 20% AER SPR 82.5 GM CAN EXT PRN (13:15)
[2022-01-11] MEDS ORDERED: MAGNESIUM HYDROXIDE SUSP 30 ML UDC PO PRN (13:15)
[2022-01-11] MEDS ORDERED: SENNA 8.6 MG TAB PO PRN (13:15)
[2022-01-11] MEDS ORDERED: HYDROCORTISONE ACETATE 25 MG SUPP PR PRN (13:15)
--- NOTE | 2022-01-11 13:15 | Post Operative Brief Note ---
PG Immediate Post Op with CF Date of Surgery January 11, 2022 Pre & Post Diagnosis Operation Date: 01/11/22 09:00 Pre-Op Diagnosis: History of Section x 2; Desires Repeat Section Post-Op Diagnosis: History of Section x 2; Desires Repeat Section I identified the patient and participated in the time-out.: Yes Procedure Operation Date: 01/11/22 09:00 Actual Procedures p Section in LD; Live Female at 1231(Bilateral) - Boaz Alvarenga MD Surgeon Boaz Alvarenga MD Training Program Developer None Estimated Blood Loss 500 Findings Consistent with Post-Op Diagnosis Specimens Specimen Description: Placenta (Hold) Cord Blood Drains Gonzalez Catheter OB Procedure charges OB Charges 46590
--- NOTE | 2022-01-11 13:26 | Anesthesiology Progress Note ---
Date of Service January 11, 2022 Anesthesia Post Procedure Vital Signs Vital Signs: Temp Pulse Resp BP Pulse Ox 01/11/22 13:24 73 92 01/11/22 13:21 100 01/11/22 13:21 73 01/11/22 13:21 68 116/63 01/11/22 07:22 18 01/11/22 07:22 36.7 C 18 01/11/22 07:18 100 H 108/58 L Notes Mental Status: alert / awake / arousable and participated in evaluation Patient Amnestic to Procedure: No Nausea / Vomiting: adequately controlled Pain: adequately controlled Airway Patency, RR, SpO2: stable & adequate BP & HR: stable & adequate Hydration State: stable & adequate Neuraxial Anesthesia: was administered and sensory block is resolving Anesthetic Complications: no major complications apparent and Pt Satisfied with anesthetic care
[2022-01-11] MEDS: LACTATED RINGER'S 1,000 ML IV SCH (15:21)
[2022-01-11] MEDS: OXYTOCIN 20 UNITS in LACTATED RINGER'S 1,000 ML IV SCH (15:42)
[2022-01-11] MEDS: KETOROLAC 30 MG/ML VIAL IV PRN ×2 (15:49→20:47)
--- NOTE | 2022-01-11 16:58 | Operative Report (OR) ---
DATE OF PROCEDURE: 01/11/2022 PROCEDURE: Repeat low transverse section. SURGEON: Boaz Alvarenga MD. PREOPERATIVE DIAGNOSES: 1. Single intrauterine at 39 weeks 2 days gestational age. 2. History of prior x2. POSTOPERATIVE DIAGNOSES: 1. Single intrauterine at 39 weeks 2 days gestational age. 2. History of prior x2. 3. Status post procedure. ESTIMATED BLOOD LOSS: 500 mL DRAINS: Gonzalez catheter. FLUIDS: Continuous lactated Ringer. URINE OUTPUT: Per Gonzalez catheter. COMPLICATIONS: None. FINDINGS: Viable with weight and Apgars pending. DESCRIPTION OF PROCEDURE: The patient was taken to the operating room after consents were ensured. Spinal anesthesia was obtained without difficulty. The patient was prepped and draped in normal ster ile fashion. A preprocedural time out was performed, after which a Pfannenstiel incision was made wi th a knife. This was carried down to underlying fascia with the Bovie. There was noted to be modera te scar tissue within the subcutaneous layers, which continued to the fascial layers. The fascia was then nicked at the midline with a knife and extended laterally in each direction with pickups and Ma yo scissors. The superior aspect of the fascia was grasped with Kochers x2, elevated off the underly ing rectus muscles using blunt dissection. Inferior aspect of the fascia was grasped with Kochers x2 , elevated off the underlying rectus muscles using blunt dissection and Gambino scissors. The midline w as then entered bluntly and placed on stretch to provide adequate room for delivery. The bladder mushtaq de was inserted. Bladder flap created. A low transverse uterine incision was then made with the kni fe. The uterine cavity was then entered bluntly. An Allis clamp was used to rupture the membranes. The head of the was noted to be in cephalic position. Head of the was delivered with out difficulty, with body and shoulders quickly following, the was noted to be vigorous soon after delivery. Cord was double clamped and cut. taken over to the waiting nursery staff fo r evaluation. Cord blood was obtained. Attention was then turned to delivery of placenta, which was delivered intact, 3-vessel cord, gentle cord traction and uterine massage. The uterus was exteriorized. Several passes were made within the uterine cavity to remove any remaining membranes with a dry lap. The uterus was wrapped in a wet la p and the hysterotomy was reapproximated with 0 Vicryl continuous running locked suture. A separate imbricating layer was performed using 0 Vicryl in a continuous running stitch. The hysterotomy was n oted to be hemostatic. The posterior cul-de-sac was cleaned of clots and debris. The uterus was ret urned to maternal abdomen. Right and left pericolic gutters were cleaned of clots and debris. The h ysterotomy reinspected and noted to have continued hemostasis. The muscle, subcutaneous and fascial layers were all inspected and noted to be hemostatic. Fascia was reapproximated with 0 Vicryl in con tinuous running stitch. The subcutaneous layers were reapproximated with a 2-0 plain in a continuous running stitch. The skin was reapproximated with 3-0 Vicryl on a Jeremy needle in a subcuticular sti tch. Dermabond placed on top. Needle, sponge, and instrument counts were correct at the completion of the case with mother and stable in the immediate post-delivery period. Job ID: [id number]
[2022-01-11] MEDS: SIMETHICONE 80 MG CHEW PO SCH ×2 (17:03→20:47)
[2022-01-11] MEDS: DOCUSATE SODIUM 100 MG CAP PO SCH (20:47)
[2022-01-12] MEDS: OXYTOCIN 20 UNITS in LACTATED RINGER'S 1,000 ML IV SCH (00:25)
--- NOTE | 2022-01-12 05:00 | Obstetrical Progress Note ---
Date of Service January 12, 2022 Assessment & Plan (1) S/P section: (2) History of section: Plan - Overall, feeling well, aims to advance diet today - breast feeding going well without concern - Gonzalez removed in AM, no independent void or stool at this time, passing gas - Ambulating well without difficulty - Pain controlled w/ Toradol - Routine PP care progressing well Admission and Anticipated Discharge Date Admission Date: January 11, 2022 Supervising Physician Co-Signing Physician Notes Patient seen and evaluated and agree with the above assessment plan. Routine care Subjective Today 01/12: Patient is a 31 y/o female who is POD #1 following delivery at 39w2d. She reports feeling well overall this morning. She states that her pain is well controlled at 3/10, and that she is working to increase her ambulation a nd dietary intake. - Ambulation - doing well, walking around room without difficulty - Voiding/Gonzalez - Gonzalez removed in AM, no independent void yet - Gas/Stool - no stool, passing gas - Diet - broths last evening without difficulty - Lochia - moderate amount, has increased since delivery - Feeding Type - breast feeding, no concerns, no breast pain - Pain Level - 3/10 controlled by Toradol Review of Systems - Denies fever, chills, sweats - Denies shortness of breath, difficulty breathing, chest pain, palpitations, chest pressure. - Denies breast pain. - Denies dysuria. - Denies headache or changes in vision. Physical Exam Physical Exam: General: Alert, oriented. No acute distress. Cardiac: RRR, normal S1/S2, no murmurs/rubs/gallops. Respiratory: Non-labored, CTAB, no wheezes/rales/rhonchi. Symmetric chest rise. Abdomen: Soft, nontender, nondistended. Bowel sounds present. Uterus: Uterine fundus firm, palpable 2 cm below umbilicus. No uterine tend erness with palpation. incision clean, mild erythema around incision site, no purulence or drainage. Additional cesarian scar below current incision. Lower Extremities: No lower extremity edema or swelling. No deep calf pain. Adal's negative bilaterally. Results & Data ([facility]) Vital Signs (Past 12 Hours) Vital Signs Temp Pulse Resp BP Pulse Ox O2 Del Method 09/20/22 01:00 16 98 01/11/22 23:00 16 98 01/12/22 00:00 16 99 01/12/22 00:00 36.7 C 68 16 109/71 99 Room Air 01/12/22 01:00 16 98 01/11/22 22:00 16 98 01/11/22 21:00 16 99 01/11/22 20:00 18 100 01/11/22 19:00 16 100 01/11/22 20:00 36.7 C 65 16 119/74 100 Room Air 01/11/22 18:50 20 99 01/11/22 17:50 18 99 Resident Activity Tracking Resident Involvement: Resident Care Provided Care Provided: OB Delivery
[2022-01-12] MEDS: KETOROLAC 30 MG/ML VIAL IV PRN (05:30)
[2022-01-12] MEDS ORDERED: CITRIC ACID/SODIUM CITRATE 15 ML UDC PO SCH (06:00)
[2022-01-12] MEDS ORDERED: ONDANSETRON INJ 2 MG/ML 2 ML VIAL IV PRN (06:08)
[2022-01-12] MEDS ORDERED: oxyCODONE/ACETAMINOPHEN 5mg/325mg TAB PO PRN (06:08)
[2022-01-12] MEDS ORDERED: diphenhydrAMINE Capsule 25 MG CAP PO PRN (06:08)
[2022-01-12] MEDS ORDERED: KETOROLAC 30 MG/ML VIAL IV PRN (06:08)
[2022-01-12] MEDS ORDERED: PROMETHAZINE HCL 25 MG in SODIUM CHLORIDE 0.9% 50 ML IV PRN (06:08)
[2022-01-12 06:38] LABS: Basophils # (auto) 0.01 K/uL (0-0.2); Basophils % (auto) 0.1 %; Eosinophils # (auto) 0.67 K/uL (0-0.50); Hemoglobin 11.1 g/dl (12.0-16.0); Immature Granulocytes # (auto) 0.04 K/uL (0.00-0.02); Immature Granulocytes % (auto) 0.4 %; Lymphocytes % (auto) 12.4 %; Mean Corpuscular Hemoglobin 32.6 pg (25.0-34.0); Mean Corpuscular Hgb Conc 33.6 g/dL (32.0-36.0); Mean Corpuscular Volume 97.1 fL (80.0-100.0); Mean Platelet Volume 10.1 fL (9.4-12.3); Monocytes # (auto) 0.74 K/uL (0.24-0.82); Monocytes % (auto) 6.6 %; Neutrophils % (auto) 74.5 %; Platelet Count 180 K/uL (130-400); RDW Coefficient of Variation 12.3 % (11.5-14.5); RDW Standard Deviation 43.8 fL (36.4-46.3); White Blood Count 11.26 K/ul (4.8-10.8)
[2022-01-12] MEDS: SIMETHICONE 80 MG CHEW PO SCH ×4 (08:22→20:30)
[2022-01-12] MEDS: FERROUS SULFATE 325 MG TAB PO SCH (08:22)
[2022-01-12] MEDS: DOCUSATE SODIUM 100 MG CAP PO SCH ×2 (08:22→20:30)
[2022-01-12] MEDS: PRENATAL VITAMIN 1 TAB PO SCH (08:22)
[2022-01-12] MEDS: LACTATED RINGER'S 1,000 ML IV SCH (13:01)
[2022-01-12] MEDS: IBUPROFEN 600 MG TAB PO PRN ×2 (15:21→20:30)
[2022-01-12] MEDS ORDERED: bisacodyL 5 MG TABEC PO SCH (20:00)
--- NOTE | 2022-01-13 05:29 | Obstetrical Progress Note ---
Date of Service January 13, 2022 Assessment & Plan (1) S/P section: (2) History of section: Plan - Overall, feeling well and eating well without difficulty - Infant breast feeding going well without concern - Independently voiding without dysuria, passing gas, anticipating bowel movement today - Ambulating well without difficulty - Pain controlled w/o medication since 2100 - Routine PP care progressing well - Anticipate discharge today Admission and Anticipated Discharge Date Admission Date: January 11, 2022 Supervising Physician Co-Signing Physician Notes Resident Physician Supervision Note: I interviewed and examined the patient. Discussed with Dr. Mcpherson and agree with findings and plan as documented in the note. Any exceptions or clarifications are listed here: Doing very well. PLan d/c. Instructions reviewed with the patient and her . f/u in 6 weeks in the office. Documented By: Geetha Rios MD, FACOG Subjective Today 01/13: Patient is a 31 y/o female who is POD #1 following delivery at 39w2d. - Ambulation - doing well, walking around room without difficulty - Voiding/Gonzalez - independently voiding without dysuria - Gas/Stool - no stool, passing gas, anticipating bowel movement this morning - Diet - regular diet without nausea or vomiting - Lochia - light amount, diminishing - Infant Feeding Type - breast feeding, no concerns, no breast pain - Pain Level - 10 last ibuprofen @ 2100 Review of Systems - Denies fever, chills, sweats - Denies shortness of breath, difficulty breathing, chest pain, palpitations, chest pressure. - Denies breast pain. - Denies dysuria. - Denies headache or changes in vision. Physical Exam Physical Exam: General: Alert, oriented. No acute distress. Cardiac: RRR, normal S1/S2, no murmurs/rubs/gallops. Respiratory: Non-labored, CTAB, no wheezes/rales/rhonchi. Symmetric chest rise. Abdomen: Soft, nontender, nondistended. Bowel sounds present. Uterus: Uterine fundus firm, palpable 2 cm below umbilicus. No uterine tenderness with palpation. incision clean, mild erythema/ecchymosis, no purulence or drainage. Additional cesarian scar below current incision. Lower Extremities: No lower extremity edema or swelling. No deep calf pain. Adal's negative bilaterally . Results & Data ([facility]) Vital Signs (Past 12 Hours) Vital Signs Temp Pulse Resp BP Pulse Ox O2 Del Method 01/13/22 00:00 36.9 C 66 16 107/71 97 Room Air 01/12/22 20:00 36.9 C 76 16 107/64 96 Room Air Resident Activity Tracking Resident Involvement: Resident Care Provided Care Provided: OB Delivery
[2022-01-13 06:39] LABS: Hematocrit (blood only) 33.6 % (34.1-44.9); Hemoglobin 11.5 g/dl (12.0-16.0)
[2022-01-13] MEDS: SIMETHICONE 80 MG CHEW PO SCH (08:34)
[2022-01-13] MEDS: DOCUSATE SODIUM 100 MG CAP PO SCH (08:35)
[2022-01-13] MEDS: PRENATAL VITAMIN 1 TAB PO SCH (08:35)
[2022-01-13] MEDS: FERROUS SULFATE 325 MG TAB PO SCH (08:35)
[2022-01-13] MEDS: IBUPROFEN 600 MG TAB PO PRN (10:57)
[2022-01-13] MEDS ORDERED: bisacodyL 10 MG SUPP PR PRN (13:15)
== END 2022-01-13 13:25 | disposition home or self-care (01) | DRG 788 ==
LOC: 4S1 06:58 → EDSTATUS 08:50 → 4E2 17:02